=== PATIENT | male | born 1975 | race Caucasian/White ===

== ENCOUNTER 2018-01-12 07:04 | Emergency (ER) | payer MEDICAID ==
[~2018-01-12] VITALS: Ht 180.3 cm; Wt 94.8 kg
[2018-01-12 07:08] VITALS: Ht 180.3 cm; Wt 94.8 kg
[2018-01-12 11:30] VITALS: BP 126/77
== END 2018-01-12 11:24 | disposition home or self-care (01) ==
LOC: ED 07:04
DX: M25.511 Pain in right shoulder (principal)
CPT/HCPCS: J1100; J1885

== ENCOUNTER 2019-09-13 01:47 | Emergency (ER) | payer OTHER ==
[~2019-09-13] VITALS: Ht 180.3 cm; Wt 92.5 kg
[2019-09-13 02:03] VITALS: BP 126/81; Ht 180.3 cm; Wt 92.5 kg
== END 2019-09-13 02:47 | disposition home or self-care (01) ==
LOC: ED 01:47
DX: B34.9 Viral infection, unspecified (principal)
CPT/HCPCS: J1885; Q0092